=== PATIENT | female | born 1940 | race Caucasian/White ===

== ENCOUNTER 2021-05-16 12:56 | Inpatient (IN) | payer OTHER ==
[2021-05-16] MEDS ORDERED: ALBUTEROL SO4 2.5/IPRATROPIUM 0.5 INH SOL 3 ML VIAL.NEB. NEB ONE ×2 (14:24→15:01)
[2021-05-16 14:50] LABS: HEMATOCRIT 43.2 % (32.4-45.2); HEMOGLOBIN 14.6 GM/dL (10.7-15.3); MCH 32.2 pg (25.7-33.7); MCHC 33.8 g/dl (32.0-36.0); MEAN CELL VOLUME 95.4 fl (80-96); MEAN PLT VOLUME 6.6 fl (7.5-11.1); PLATELET COUNT 299 10^3/uL (134-434); RBC 4.53 M/mm3 (3.60-5.2); RDW 15.6 % (11.6-15.6)
[2021-05-16 15:00] LABS: INR 0.93 (0.83-1.09); PROTHROMBIN TIME (PATIENT) 11.4 SEC (9.7-13.0)
[2021-05-16 15:02] LABS: ACTIVATED PTT 28.4 SECONDS (25.2-36.5)
[2021-05-16 15:03] LABS: VENOUS BASE EXCESS 3.3 mmol/L (-2-2); VENOUS O2 SATURATION 91.1 % (70-80); VENOUS PCO2 55.1 mmHg (38-52); VENOUS PH 7.357 (7.310-7.410)
[2021-05-16 15:14] LABS: CHLORIDE 97 mmol/L (98-107); SODIUM 133 mmol/L (136-145)
[2021-05-16 15:17] LABS: ALBUMIN 3.2 g/dl (3.4-5.0); BLOOD UREA NITROGEN 11.4 mg/dL (7-18); CALCIUM 8.9 mg/dL (8.5-10.1); GLUCOSE,RANDOM 135 mg/dL (74-106); MAGNESIUM 2.1 mg/dL (1.8-2.4)
[2021-05-16 15:18] LABS: ANION GAP 9 MMOL/L (8-16); CO2 28 mmol/L (21-32)
[2021-05-16 15:20] LABS: CREATININE 0.6 mg/dL (0.55-1.3); SGOT/AST 16 U/L (15-37); SGPT/ALT 30 U/L (13-61)
[2021-05-16 15:21] LABS: ALK PHOS 68 U/L (45-117)
[2021-05-16 15:22] LABS: BILIRUBIN,TOTAL 0.4 mg/dL (0.2-1)
[2021-05-16 15:25] LABS: N-TERMINAL BNP 119.9 pg/ml (5-450)
[2021-05-16 15:34] LABS: PLATELET ESTIMATE ADEQUATE
[2021-05-16] MEDS ORDERED: ATORVASTATIN CA 10 MG TABLET (FP) ONE (23:06)
[2021-05-16] MEDS: ATORVASTATIN CA 10 MG TABLET (FP) PO SCH (23:17)
[2021-05-17] MEDS ORDERED: methylPREDNISolone NA SUCC 40 MG/1 ML VIAL ONE (05:55)
[2021-05-17] MEDS: methylPREDNISolone NA SUCC 40 MG/1 ML VIAL IVPUSH SCH ×3 (05:59→18:45)
[2021-05-17 06:09] LABS: HEMATOCRIT 41.4 % (32.4-45.2); HEMOGLOBIN 13.9 GM/dL (10.7-15.3); MCH 32.1 pg (25.7-33.7); MCHC 33.5 g/dl (32.0-36.0); MEAN CELL VOLUME 95.9 fl (80-96); MEAN PLT VOLUME 6.5 fl (7.5-11.1); PLATELET COUNT 284 10^3/uL (134-434); RBC 4.32 M/mm3 (3.60-5.2); RDW 15.6 % (11.6-15.6); WHITE BLOOD COUNT 14.7 K/mm3 (4.0-10.0)
[2021-05-17 06:25] LABS: CALCIUM 8.9 mg/dL (8.5-10.1)
[2021-05-17 06:26] LABS: ALBUMIN 2.9 g/dl (3.4-5.0); BLOOD UREA NITROGEN 19.3 mg/dL (7-18)
[2021-05-17 06:29] LABS: CREATININE 0.7 mg/dL (0.55-1.3)
[2021-05-17 06:31] LABS: BILIRUBIN,TOTAL 0.4 mg/dL (0.2-1); TOT PROT 6.3 g/dl (6.4-8.2)
[2021-05-17] MEDS: LEVOTHYROXINE NA 88 MCG TABLET (FP) PO SCH (07:02)
[2021-05-17] MEDS ORDERED: MULTIVITAMINS (DAILY MVI) TABLET (FP) ONE (07:38)
[2021-05-17] MEDS ORDERED: HEPARIN NA (PORCINE) 5,000 UNITS/ML 1ML VIAL ONE (07:39)
[2021-05-17] MEDS ORDERED: ALBUTEROL SO4 2.5/IPRATROPIUM 0.5 INH SOL 3 ML VIAL.NEB. NEB ONE (09:08)
[2021-05-17] MEDS: MULTIVITAMINS (DAILY MVI) TABLET (FP) PO SCH (09:14)
[2021-05-17] MEDS: HEPARIN NA (PORCINE) 5,000 UNITS/ML 1ML VIAL SQ SCH ×2 (09:14→21:24)
[2021-05-17 09:29] LABS: ANISOCYTOSIS 0; MACROCYTOSIS 0; PLATELET ESTIMATE NORMAL
[2021-05-17] MEDS: ALBUTEROL SO4 0.083% IH SOL 2.5 MG/3 ML VIAL.NEB. NEB PRN ×2 (09:43→16:50)
[2021-05-17] MEDS: BUDESONIDE/FORMETEROL FUMARATE 160/4.5 mcg INHALER IH SCH ×2 (09:53→21:21)
[2021-05-17] MEDS: TIOTROPIUM BROMIDE 2.5 MCG (SPIRIVA) RESPIMAT INHALER IH SCH (10:04)
[2021-05-17 13:40] VITALS: BMI 27.1
[2021-05-17] MEDS: AZITHROMYCIN IVPB 500 MG/250 ML BAG IVPB SCH (18:45)
[2021-05-17] MEDS: ATORVASTATIN CA 10 MG TABLET (FP) PO SCH (21:23)
[2021-05-18] MEDS: methylPREDNISolone NA SUCC 40 MG/1 ML VIAL IVPUSH SCH ×4 (01:30→17:49)
[2021-05-18] MEDS: LEVOTHYROXINE NA 88 MCG TABLET (FP) PO SCH (06:19)
[2021-05-18] MEDS: ALBUTEROL SO4 0.083% IH SOL 2.5 MG/3 ML VIAL.NEB. NEB PRN ×3 (09:15→20:23)
[2021-05-18 09:38] LABS: HEMATOCRIT 40.7 % (32.4-45.2); MCH 32.5 pg (25.7-33.7); MCHC 34.3 g/dl (32.0-36.0); MEAN CELL VOLUME 94.8 fl (80-96); MEAN PLT VOLUME 6.6 fl (7.5-11.1); PLATELET COUNT 312 10^3/uL (134-434); RBC 4.29 M/mm3 (3.60-5.2); RDW 15.2 % (11.6-15.6); WHITE BLOOD COUNT 17.2 K/mm3 (4.0-10.0)
[2021-05-18 09:59] LABS: BLOOD UREA NITROGEN 13.7 mg/dL (7-18)
[2021-05-18 10:02] LABS: CREATININE 0.6 mg/dL (0.55-1.3)
[2021-05-18 10:03] LABS: BILIRUBIN,TOTAL 0.4 mg/dL (0.2-1); TOT PROT 6.7 g/dl (6.4-8.2)
[2021-05-18] MEDS: BUDESONIDE/FORMETEROL FUMARATE 160/4.5 mcg INHALER IH SCH ×2 (10:15→21:32)
[2021-05-18] MEDS: AZITHROMYCIN IVPB 500 MG/250 ML BAG IVPB SCH (10:15)
[2021-05-18] MEDS: HEPARIN NA (PORCINE) 5,000 UNITS/ML 1ML VIAL SQ SCH ×2 (10:16→21:32)
[2021-05-18] MEDS: MULTIVITAMINS (DAILY MVI) TABLET (FP) PO SCH (10:16)
[2021-05-18] MEDS: TIOTROPIUM BROMIDE 2.5 MCG (SPIRIVA) RESPIMAT INHALER IH SCH (10:19)
[2021-05-18 12:19] LABS: ANISOCYTOSIS 0; MACROCYTOSIS 0; PLATELET ESTIMATE NORMAL
[2021-05-18] MEDS: ATORVASTATIN CA 10 MG TABLET (FP) PO SCH (21:32)
[2021-05-19] MEDS: methylPREDNISolone NA SUCC 40 MG/1 ML VIAL IVPUSH SCH ×3 (01:35→18:23)
[2021-05-19] MEDS: ALBUTEROL SO4 0.083% IH SOL 2.5 MG/3 ML VIAL.NEB. NEB PRN ×4 (02:46→22:46)
[2021-05-19] MEDS: LEVOTHYROXINE NA 88 MCG TABLET (FP) PO SCH (06:07)
[2021-05-19] MEDS: AZITHROMYCIN IVPB 500 MG/250 ML BAG IVPB SCH (10:19)
[2021-05-19] MEDS: BUDESONIDE/FORMETEROL FUMARATE 160/4.5 mcg INHALER IH SCH ×2 (10:20→22:17)
[2021-05-19] MEDS: MULTIVITAMINS (DAILY MVI) TABLET (FP) PO SCH (10:21)
[2021-05-19] MEDS: HEPARIN NA (PORCINE) 5,000 UNITS/ML 1ML VIAL SQ SCH ×2 (10:21→22:17)
[2021-05-19] MEDS: TIOTROPIUM BROMIDE 2.5 MCG (SPIRIVA) RESPIMAT INHALER IH SCH (10:23)
[2021-05-19] MEDS: ATORVASTATIN CA 10 MG TABLET (FP) PO SCH (22:17)
[2021-05-20] MEDS: methylPREDNISolone NA SUCC 40 MG/1 ML VIAL IVPUSH SCH ×4 (02:02→21:11)
[2021-05-20] MEDS: ALBUTEROL SO4 0.083% IH SOL 2.5 MG/3 ML VIAL.NEB. NEB PRN ×4 (04:58→23:16)
[2021-05-20] MEDS: LEVOTHYROXINE NA 88 MCG TABLET (FP) PO SCH (06:02)
[2021-05-20] MEDS: HEPARIN NA (PORCINE) 5,000 UNITS/ML 1ML VIAL SQ SCH ×2 (09:35→21:11)
[2021-05-20] MEDS: AZITHROMYCIN IVPB 500 MG/250 ML BAG IVPB SCH (09:36)
[2021-05-20] MEDS: BUDESONIDE/FORMETEROL FUMARATE 160/4.5 mcg INHALER IH SCH ×2 (09:36→21:12)
[2021-05-20] MEDS: MULTIVITAMINS (DAILY MVI) TABLET (FP) PO SCH (09:36)
[2021-05-20] MEDS: TIOTROPIUM BROMIDE 2.5 MCG (SPIRIVA) RESPIMAT INHALER IH SCH (09:38)
[2021-05-20 10:29] LABS: HEMATOCRIT 38.8 % (32.4-45.2); HEMOGLOBIN 13.1 GM/dL (10.7-15.3); MCH 32.2 pg (25.7-33.7); MCHC 33.7 g/dl (32.0-36.0); MEAN CELL VOLUME 95.5 fl (80-96); MEAN PLT VOLUME 6.6 fl (7.5-11.1); PLATELET COUNT 266 10^3/uL (134-434); RBC 4.06 M/mm3 (3.60-5.2); RDW 15.2 % (11.6-15.6); WHITE BLOOD COUNT 16.5 K/mm3 (4.0-10.0)
[2021-05-20 11:26] LABS: BLOOD UREA NITROGEN 17.5 mg/dL (7-18)
[2021-05-20 11:27] LABS: CALCIUM 9.1 mg/dL (8.5-10.1)
[2021-05-20 11:29] LABS: CREATININE 0.6 mg/dL (0.55-1.3)
[2021-05-20 11:31] LABS: BILIRUBIN,TOTAL 0.4 mg/dL (0.2-1); TOT PROT 6.1 g/dl (6.4-8.2)
[2021-05-20 12:07] LABS: ANISOCYTOSIS 0; MACROCYTOSIS 1+; PLATELET ESTIMATE NORMAL
[2021-05-20] MEDS: ATORVASTATIN CA 10 MG TABLET (FP) PO SCH (21:12)
[2021-05-21] MEDS: methylPREDNISolone NA SUCC 40 MG/1 ML VIAL IVPUSH SCH ×4 (02:31→21:34)
[2021-05-21] MEDS: LEVOTHYROXINE NA 88 MCG TABLET (FP) PO SCH (06:31)
[2021-05-21] MEDS: ALBUTEROL SO4 0.083% IH SOL 2.5 MG/3 ML VIAL.NEB. NEB PRN ×3 (06:42→17:50)
[2021-05-21] MEDS: AZITHROMYCIN IVPB 500 MG/250 ML BAG IVPB SCH (10:05)
[2021-05-21] MEDS: PANTOPRAZOLE 20 MG TABLET PO SCH (10:06)
[2021-05-21] MEDS: MULTIVITAMINS (DAILY MVI) TABLET (FP) PO SCH (10:06)
[2021-05-21] MEDS: HEPARIN NA (PORCINE) 5,000 UNITS/ML 1ML VIAL SQ SCH ×2 (10:08→21:34)
[2021-05-21] MEDS: TIOTROPIUM BROMIDE 2.5 MCG (SPIRIVA) RESPIMAT INHALER IH SCH (10:08)
[2021-05-21] MEDS: BUDESONIDE/FORMETEROL FUMARATE 160/4.5 mcg INHALER IH SCH ×2 (10:09→21:33)
[2021-05-21] MEDS: ATORVASTATIN CA 10 MG TABLET (FP) PO SCH (21:34)
[2021-05-22] MEDS: ALBUTEROL SO4 0.083% IH SOL 2.5 MG/3 ML VIAL.NEB. NEB PRN ×4 (02:00→20:10)
[2021-05-22] MEDS: methylPREDNISolone NA SUCC 40 MG/1 ML VIAL IVPUSH SCH ×4 (02:44→18:17)
[2021-05-22] MEDS: LEVOTHYROXINE NA 88 MCG TABLET (FP) PO SCH (06:47)
[2021-05-22] MEDS: AZITHROMYCIN IVPB 500 MG/250 ML BAG IVPB SCH (11:33)
[2021-05-22] MEDS: HEPARIN NA (PORCINE) 5,000 UNITS/ML 1ML VIAL SQ SCH ×2 (11:33→21:14)
[2021-05-22] MEDS: MULTIVITAMINS (DAILY MVI) TABLET (FP) PO SCH (11:33)
[2021-05-22] MEDS: PANTOPRAZOLE 20 MG TABLET PO SCH (11:34)
[2021-05-22] MEDS: TIOTROPIUM BROMIDE 2.5 MCG (SPIRIVA) RESPIMAT INHALER IH SCH (11:34)
[2021-05-22] MEDS: BUDESONIDE/FORMETEROL FUMARATE 160/4.5 mcg INHALER IH SCH ×2 (11:34→21:14)
[2021-05-22] MEDS: ATORVASTATIN CA 10 MG TABLET (FP) PO SCH (21:14)
[2021-05-23] MEDS: ALBUTEROL SO4 0.083% IH SOL 2.5 MG/3 ML VIAL.NEB. NEB PRN ×2 (01:26→08:10)
[2021-05-23] MEDS: methylPREDNISolone NA SUCC 40 MG/1 ML VIAL IVPUSH SCH ×3 (01:48→17:43)
[2021-05-23] MEDS: LEVOTHYROXINE NA 88 MCG TABLET (FP) PO SCH (06:01)
[2021-05-23] MEDS: BUDESONIDE/FORMETEROL FUMARATE 160/4.5 mcg INHALER IH SCH ×2 (10:17→21:08)
[2021-05-23] MEDS: TIOTROPIUM BROMIDE 2.5 MCG (SPIRIVA) RESPIMAT INHALER IH SCH (10:17)
[2021-05-23] MEDS: PANTOPRAZOLE 20 MG TABLET PO SCH (10:25)
[2021-05-23] MEDS: MULTIVITAMINS (DAILY MVI) TABLET (FP) PO SCH (10:25)
[2021-05-23] MEDS: HEPARIN NA (PORCINE) 5,000 UNITS/ML 1ML VIAL SQ SCH ×2 (10:28→21:08)
[2021-05-23] MEDS: ALBUTEROL SO4 0.083% IH SOL 2.5 MG/3 ML VIAL.NEB. NEB SCH ×2 (16:22→21:13)
[2021-05-23] MEDS: ATORVASTATIN CA 10 MG TABLET (FP) PO SCH (21:08)
[2021-05-24] MEDS: methylPREDNISolone NA SUCC 40 MG/1 ML VIAL IVPUSH SCH ×3 (02:07→21:25)
[2021-05-24] MEDS: LEVOTHYROXINE NA 88 MCG TABLET (FP) PO SCH (06:37)
[2021-05-24] MEDS: ALBUTEROL SO4 0.083% IH SOL 2.5 MG/3 ML VIAL.NEB. NEB SCH ×4 (07:30→20:10)
[2021-05-24] MEDS: BUDESONIDE/FORMETEROL FUMARATE 160/4.5 mcg INHALER IH SCH ×2 (09:50→21:24)
[2021-05-24] MEDS: TIOTROPIUM BROMIDE 2.5 MCG (SPIRIVA) RESPIMAT INHALER IH SCH (09:51)
[2021-05-24] MEDS: PANTOPRAZOLE 20 MG TABLET PO SCH (09:51)
[2021-05-24] MEDS ORDERED: PT OWN MED DRAWER 7, Y5N ONE (09:53)
[2021-05-24] MEDS: MULTIVITAMINS (DAILY MVI) TABLET (FP) PO SCH (09:54)
[2021-05-24] MEDS: MECLIZINE HCL 25 MG TABLET (FP) PO PRN (16:46)
[2021-05-24] MEDS: ATORVASTATIN CA 10 MG TABLET (FP) PO SCH (21:24)
[2021-05-24] MEDS: HEPARIN NA (PORCINE) 5,000 UNITS/ML 1ML VIAL SQ SCH (21:25)
[2021-05-25] MEDS: MECLIZINE HCL 25 MG TABLET (FP) PO PRN ×3 (05:48→21:06)
[2021-05-25] MEDS: LEVOTHYROXINE NA 88 MCG TABLET (FP) PO SCH (06:16)
[2021-05-25] MEDS: ALBUTEROL SO4 0.083% IH SOL 2.5 MG/3 ML VIAL.NEB. NEB SCH ×4 (07:55→19:45)
[2021-05-25] MEDS: PANTOPRAZOLE 20 MG TABLET PO SCH (09:11)
[2021-05-25] MEDS: HEPARIN NA (PORCINE) 5,000 UNITS/ML 1ML VIAL SQ SCH ×2 (09:11→21:05)
[2021-05-25] MEDS: MULTIVITAMINS (DAILY MVI) TABLET (FP) PO SCH (09:11)
[2021-05-25] MEDS: methylPREDNISolone NA SUCC 40 MG/1 ML VIAL IVPUSH SCH ×2 (09:12→21:05)
[2021-05-25] MEDS: TIOTROPIUM BROMIDE 2.5 MCG (SPIRIVA) RESPIMAT INHALER IH SCH (09:13)
[2021-05-25] MEDS: BUDESONIDE/FORMETEROL FUMARATE 160/4.5 mcg INHALER IH SCH ×2 (09:14→21:41)
[2021-05-25] MEDS: ATORVASTATIN CA 10 MG TABLET (FP) PO SCH (21:05)
[2021-05-26] MEDS: LEVOTHYROXINE NA 88 MCG TABLET (FP) PO SCH (06:01)
[2021-05-26] MEDS: ALBUTEROL SO4 0.083% IH SOL 2.5 MG/3 ML VIAL.NEB. NEB SCH ×3 (07:35→15:40)
[2021-05-26] MEDS: TIOTROPIUM BROMIDE 2.5 MCG (SPIRIVA) RESPIMAT INHALER IH SCH (09:25)
[2021-05-26] MEDS: BUDESONIDE/FORMETEROL FUMARATE 160/4.5 mcg INHALER IH SCH (09:25)
[2021-05-26] MEDS: PANTOPRAZOLE 20 MG TABLET PO SCH (09:25)
[2021-05-26] MEDS: MULTIVITAMINS (DAILY MVI) TABLET (FP) PO SCH (09:25)
[2021-05-26] MEDS: HEPARIN NA (PORCINE) 5,000 UNITS/ML 1ML VIAL SQ SCH (09:25)
[2021-05-26] MEDS: methylPREDNISolone NA SUCC 40 MG/1 ML VIAL IVPUSH SCH (09:26)
[2021-05-26 14:52] VITALS: BP 119/58; PULSE 76; TEMP 98.8
== END 2021-05-26 16:11 | disposition home or self-care (01) | DRG 190 ==
LOC: JER 12:56 → JERBED 22:10 → J5S 05-17 10:46 → UNDODISIN 05-26 13:20
PROVIDERS: ADMIT Specialist; ATTEND Specialist
DX: J44.1 Chronic obstructive pulmonary disease with (acute) exacerbation (principal); J96.21 Acute and chronic respiratory failure with hypoxia; E03.9 Hypothyroidism, unspecified; E78.5 Hyperlipidemia, unspecified; Z99.81 Dependence on supplemental oxygen; R91.1 Solitary pulmonary nodule; R42 Dizziness and giddiness
CPT/HCPCS: 36415; 70450-TC; 71045-TC-FY; 71275-TC; 80053; 82550; 82803; 83735; 83880; 84484; 85025; 85610; 85730; 93005; 93010; 94640; 99285-25; C9803; J1644; Q9967; U0003; U0005